=== PATIENT | female | born 2000 | race Asian ===

== ENCOUNTER → 2021-01-25 16:44 | Outpatient (CLI) | payer OTHER, MEDICAID, SELFPAY ==
[2021-01-25] MEDS: COVID-19 VACC #1, MRNA(MOD) 100 MCG/0.5 ML VIAL IM (16:49)
== END ==
PROVIDERS: Visit Provider Internal Medicine
DX: Z23 Encounter for immunization (principal)
CPT/HCPCS: 0011A; 91301

== ENCOUNTER 2023-07-07 08:19 | Day surgery (SDC) | payer OTHER, MEDICAID, SELFPAY ==
--- NOTE | 2023-07-07 | PATH_ITS ---
[facility] Accession Number: [id number] No. of containers..03 Tissue . 01 Material submitted: . PART A: small bowel - TERMINAL ILEUM PART B: small bowel - SMALL BOWEL POLYPS PART C: colon - RANDOM COLON . 01 Diagnosis: A. Terminal Ileum, Biopsy: Small bowel mucosa with no diagnostic abnormality. Negative for active inflammation, dysplasia, and malignancy. . B. Specimen Desiganted Small Bowel Polyps, Biopsy: Small bowel mucosa with benign lymphoid aggregates, but with no other significant diagnostic alterations. No dysplasia or neoplasia. . C. Random Colon, Biopsy: Colonic mucosa with no diagnostic abnormality. Negative for active, chronic, and microscopic colitis. Negative for dysplasia and malignancy. . [facility] 07/15/2023 1123 Local . 01 Electronically signed: . Nicolle Hills MD, Pathologist NPI- [id number] . 01 Gross description: . Part A: TERMINAL ILEUM: Received in formalin is 1 fragment(s) of fox, soft tissue measuring 0.4 x 0.4 x 0.2 cm submitted entirely in 1 cassette(s) Part B: SMALL BOWEL POLYPS: Received in formalin is 1 fragment(s) of fox, soft tissue measuring 0.4 x 0.3 x 0.3 cm submitted entirely in 1 cassette(s) Part C: RANDOM COLON: Received in formalin is multiple fragment(s) of fox, soft tissue measuring 0.8 x 0.4 x 0.1 cm in aggregate submitted entirely in 1 cassette(s) /[facility] 07/09/2023 2358 Local . 01 Pathologist provided ICD-10: K63.89 . 01 CPT . 854415, 726736, 117226 Performed at: [address], [place], [place] [id number] MD Rafita Macias MD Phone: [phone]
[2023-07-07] MEDS: LACTATED RINGERS 1,000 ML 200 ML IV (08:33)
[2023-07-07 08:43] VITALS: BP 127/69; PULSE 102; RESP 16; TEMP 36.8; O2SAT 98; BMI 23.4
--- NOTE | 2023-07-07 09:40 | PM.PREOP ---
Pre-operative Note Interval Note History & Physical reviewed/Exam performed by Physician: Yes Changes to H&P: No
[2023-07-07 10:15] VITALS: BP 110/70; PULSE 82; RESP 17; TEMP 36.6; O2SAT 100
--- NOTE | 2023-07-07 10:15 | P.OP.COLON_ITS ---
Operative Date/Time/Diagnoses Date of procedure: 07/07/23 Time of procedure: 10:16 Pre-op diagnosis: Rectal bleeding, diarrhea Post-op diagnosis: same Procedure & Clinicians Study performed: Colonoscopy Same procedure as scheduled: Yes Indications: 22-year-old woman with several years of bright red blood per rectum and diarrhea here for diagnostic colonoscopy Surgeon: Daniel Bell Procedure Notes Procedure in detail: The history and physical was performed/updated and the patient is ASA class is 1. The procedure was discussed in detail with the patient. Potential risks complications including infection, bleeding, missed diagnosis, perforation, need for surgery, and were explained. Their questions were answered and informed consent was obtained. Patient was brought to the procedure room and placed standard monitoring equi pment. The patient's vital signs were monitored continuously throughout the entire procedure. Prior to starting time-out was performed. The patient was placed in the left lateral recumbent position. Procedural sedation was administered by anesthesia. Examination began with a thorough inspection of the perianal area there was no evidence of fissures, fistulae, external hemorrhoids or cutaneous malignancy. The colonoscopy scope was then placed into the anal canal and was advanced to the cecum, which was identified by the ileocecal valve, the appendiceal orifice and the confluence of the taenia. The ileocecal valve was intubated and the terminal ileum was examined. Numerous small polyps within the small bowel and a biopsy was obtained of this. Terminal ileum biopsied, generally unremarkable. Colon without masses or polyps. Rectum mild proctitis biopsied. The patient tolerated the procedure well. They will be discharged once criteria are met. The prep was of good/excellent quality. The withdrawl time was 10 minutes. Findings: other findings (Small-bowel polyps. Mild proctitis) Specimen(s): other (terminal ileum, small bowel polyp, random colonic) Impression: Mild proctitis Small bowel polyps Post-procedure Plan for aftercare: Will notify with results of biopsy Disposition: same day surgery
[2023-07-07 10:19] VITALS: BP 114/72; PULSE 81; RESP 16; TEMP 36.6; O2SAT 100
[2023-07-07 10:24] VITALS: BP 116/68; PULSE 90; RESP 17; TEMP 36.6; O2SAT 95
[2023-07-07 10:36] VITALS: BP 116/69; PULSE 82; RESP 14; TEMP 36.6; O2SAT 99
== END 2023-07-07 10:48 | disposition home or self-care (01) ==
PROVIDERS: PCP Nurse Practitioner; Referring Provider Surgery; Visit Provider Surgery
PROC: 0DJD8ZZ Inspection of Lower Intestinal Tract, Via Natural or Artificial Opening Endoscopic (ICD-10-PCS; CPT 45378; principal; 2023-07-07 09:45)
DX: K62.5 Hemorrhage of anus and rectum (principal); K62.89 Other specified diseases of anus and rectum; R19.7 Diarrhea, unspecified
CPT/HCPCS: 45380; J2704